=== PATIENT | female | born 1980 | race Caucasian/White ===

== ENCOUNTER 2020-01-27 08:54 | Outpatient (CLI) | payer OTHER, SELFPAY ==
--- NOTE | ~2020-01-27 | MM_ITS ---
EXAMINATION: MM screening sonia BI w dalia HISTORY: Screening mammogram, family history of breast cancer in her mother. TECHNIQUE: Craniocaudal and mediolateral oblique 3-D tomosynthesis images were obtained and synthetic 2-D images were generated. CAD analysis was submitted and interpreted. COMPARISON: 01/06/2019, 01/18/2018 BREAST PARENCHYMAL COMPOSITION: The breasts are heterogeneously dense, which may obscure small masses . FINDINGS: There is no evidence of suspicious mass, calcification, or architectural distortion to sugg est malignancy in either breast. There has been no suspicious interval change. IMPRESSION: 1. No mammographic evidence of malignancy. 2. Recommend routine screening mammography in one year. BI-RADS Category 1: Negative Reviewed, dictated and finalized at location A.
== END 2020-01-27 08:55 | disposition home or self-care (01) ==
LOC: ANHIMG 08:58
PROVIDERS: PCP Physician Assistant; Visit Provider Obstetrics & Gynecology
DX: Z12.31 Encounter for screening mammogram for malignant neoplasm of breast (principal)
CPT/HCPCS: 77063; 77067

== ENCOUNTER 2021-03-12 15:30 | Outpatient (CLI) | payer OTHER, SELFPAY ==
--- NOTE | ~2021-03-12 | MM_ITS ---
EXAMINATION: MM screening sonia BI w dalia HISTORY: Screening mammogram, family history of breast cancer in her mother. TECHNIQUE: Craniocaudal and mediolateral oblique 3-D tomosynthesis images were obtained and synthetic 2-D images were generated. CAD analysis was submitted and interpreted. COMPARISON: 01/27/2020, 01/06/2019, 12/30/2017 BREAST PARENCHYMAL COMPOSITION: The breasts are heterogeneously dense, which may obscure small masses . FINDINGS: There is no evidence of suspicious mass, calcification, or architectural distortion to sugg est malignancy in either breast. There has been no suspicious interval change. IMPRESSION: 1. No mammographic evidence of malignancy. 2. Recommend routine screening mammography in one year. BI-RADS Category 1: Negative Reviewed, dictated and finalized at location A.
== END 2021-03-12 15:31 | disposition home or self-care (01) ==
LOC: ANHIMG 15:33
PROVIDERS: PCP Physician Assistant; Visit Provider Physician Assistant
DX: Z12.31 Encounter for screening mammogram for malignant neoplasm of breast (principal)
CPT/HCPCS: 77063; 77067

== ENCOUNTER 2021-03-27 19:56 | Emergency (ER) | payer OTHER, SELFPAY ==
--- NOTE | ~2021-03-27 | XR_ITS ---
EXAMINATION: XR finger 2nd LT min 2V INDICATION: Left second finger pain, initial encounter TECHNIQUE: Four views of the left second finger are obtained. COMPARISON: None available FINDINGS: There is a soft tissue laceration at the palmar aspect of the tuft of the second finger. Th ere is no radiopaque foreign body. No underlying osseous abnormality is identified. Bone alignment is normal. There is no fracture. IMPRESSION: 1. Soft tissue laceration involving the tuft of the second finger without underlying osseous abnormal ity or radiopaque foreign body. Reviewed, dictated and finalized at location A. IMPRESSION: 1. Soft tissue laceration involving the tuft of the second finger without under lying osseous abnormality or radiopaque foreign body.
--- NOTE | 2021-03-27 20:02 | ED.WOUNDLAC ---
HPI - Wound/Laceration General Chief Complaint: Wound/Laceration Stated Complaint: Cut third finger Lt Hand Time Seen by Provider: 03/27/21 20:01 Source: patient and RN notes reviewed Limitations: no limitations History of Present Illness HPI narrative: The right-handed patient, whose tetanus status is up-to-date, presents with left index finger laceration. About an hour prior to arrival, patient sustained a 1 cm, transverse, linear laceration of the distal left index finger on the mid-tuft from battery-powered ore trimmer. No weakness, numbness, foreign body sensation; symptoms of bleeding and pain are mild, better with compression or elevation Related Data Home Medications Medication Instructions Recorded Confirmed multivitamin 1 tablet PO DAILY 02/21/20 03/01/21 cetirizine 10 mg capsule 10 mg PO DAILY PRN 02/27/21 03/01/21 Allergies Allergy/AdvReac Type Severity Reaction Status Date / Time Quinolones Allergy Mild RASH ON Verified 02/27/21 09:31 ARMS amoxicillin Allergy Unknown Unknown Verified 02/27/21 09:31 ciprofloxacin Allergy Unknown Unknown Verified 02/27/21 09:31 Penicillins Allergy Unknown Unknown Verified 02/27/21 09:31 CIPROFLOXACIN HCL Allergy Mild RASH Uncoded 08/20/19 10:17 Review of Systems Review of Systems: Narrative: General/Constitutional: No weight loss,fever Eyes: N0: Redness,discharge Ears/Nose/Throat: No: Epistaxis,ear discharge Respiratory: Denies: Hemoptysis Gastrointestinal: No Vomiting, Bleeding-rectal Skin: No Lumps, eruption Neurologic: No Focal Weakness,Sz Hematologic: Denies: Petechiae/Purpura Psychiatric: No: Suicida ideationl All Other Systems: Reviewed and Negative [facility] Past Medical History Medical History (Updated 03/28/21 @ 00:01 by Mary Lou Mosley) Carpal tunnel syndrome Depression Vaginal delivery x 4 Surgical History Surgical History History of dilation and curettage History of hernia repair Family History Family History Grandparent Hypertension Cerebrovascular accident Carcinoma of colon Family history of malignant neoplasm of breast Diabetes mellitus Family history of cardiovascular disease Mother Hypertension Family history of diabetes mellitus in first degree relative Diabetes mellitus Father Carcinoma of colon Social History Social History Smoking status: Former smoker Second hand tobacco smoke exposure: No Smoking end date: 09/01/02 Alcohol intake: never Comments At time of signature, agree with nursing past medical, surgical, social and family history. There is no relevant family history pertinent to the presenting complaint Exam Narrative: Exam Narrative: General Appearance: Well appearing, , Conjunctiva clear Mouth/Throat: Normal appearing, Normal lips, Supple Respiratory: Airway patent, No respiratory distress MS-fingerl: Normal strength (mostly intact, limited flexion/extension by pain), Tenderness ( laterally, with mild decreased ROM), Swelling (laterally), Other (no anterior drawer, no collateral laxity, no Achilles tenderness, no fifth MT tenderness) Skin: Warm, Dry, Normal color Neurological: A&O x3, , Normal affect Course Vital Signs Vital signs: Vital Signs Temperature 99.6 F 03/27/21 20:05 Pulse Rate 78 03/27/21 20:05 Respiratory Rate 18 03/27/21 20:05 Blood Pressure 120/78 03/27/21 20:05 Pulse Oximetry 100 03/27/21 20:05 Temperature 99.6 F 03/27/21 20:05 Pulse Rate 78 03/27/21 20:05 Respiratory Rate 18 03/27/21 20:05 Blood Pressure 120/78 03/27/21 20:05 Pulse Oximetry 100 03/27/21 20:05 Procedures Laceration Laceration 1: Date: 03/27/21 Site: hand Side (If applicable): left Size (cm): 1 Description: linear Depth: simple, single layer
[2021-03-27 20:05] VITALS: BP 120/78; PULSE 78; RESP 18; TEMP 37.6; O2SAT 100
[2021-03-27] MEDS: LIDOCAINE, EPINEPHRINE, TETRACAINE VISCOUS SOLN 3 ML TOPICAL (20:18)
== END 2021-03-27 20:56 | disposition home or self-care (01) ==
PROVIDERS: Emergency Provider Emergency Medicine; PCP Physician Assistant
DX: S61.211A Laceration without foreign body of left index finger without damage to nail, initial encounter (principal); W29.3XXA Contact with powered garden and outdoor hand tools and machinery, initial encounter; Z87.891 Personal history of nicotine dependence
CPT/HCPCS: 12001; 73140; 99213; G0463

== ENCOUNTER 2021-05-10 13:15 | Outpatient (CLI) | payer OTHER, SELFPAY | END 2021-05-10 13:16 | disposition home or self-care (01) | PROVIDERS: PCP Physician Assistant; Visit Provider Surgery | DX: K43.2 Incisional hernia without obstruction or gangrene (principal) | CPT/HCPCS: 36415; 86850; 86900; 86901 ==

== ENCOUNTER 2021-05-15 00:10 | Day surgery (SDC) | payer OTHER, SELFPAY ==
[2021-05-08 13:40] VITALS: BMI 28.3
--- NOTE | 2021-05-14 10:30 | WPDANESEPPF ---
Anes - Initial Pre Proc Eval Procedure: Operation Date: 05/15/21 11:30 Proposed Procedures p Laparoscopic Recurrent Ventral Hernia Repair with Mesh, Davinci Assisted - Mickey Wills DO Date/Time: 05/14/21 10:30 Surgeon: Mickey Wills DO Pre Op Diagnosis: Recurrent Ventral Hernia Patient Data Age: 41 Gender: F Height: 1.63 m Weight: 75 kg Allergies Allergy/AdvReac Type Severity Reaction Status Date / Time amoxicillin Allergy Mild Rash Verified 05/15/21 09:52 ciprofloxacin Allergy Mild Rash Verified 05/15/21 09:52 Penicillins Allergy Mild Rash Verified 05/15/21 09:52 Home Medications Medication Instructions Recorded Confirmed Type multivitamin 1 tablet PO DAILY 02/21/20 05/15/21 History cetirizine 10 mg capsule 10 mg PO DAILY PRN 02/27/21 05/08/21 History escitalopram oxalate 20 mg PO QAM 05/08/21 05/15/21 History pseudoephedrine HCl [Sudafed] 60 mg PO Q4-6H PRN 05/08/21 05/08/21 History Patient hx anesthesia problems: post op nausea/vomiting Family hx anesthesia problems: none PMFSH Past Medical History Medical History (Updated 03/28/21 @ 00:01 by Mary Lou Mosley) Carpal tunnel syndrome Depression Vaginal delivery x 4 Surgical History Surgical History History of dilation and curettage History of hernia repair Family History Family History Grandparent Hypertension Cerebrovascular accident Carcinoma of colon Family history of malignant neoplasm of breast Diabetes mellitus Family history of cardiovascular disease Mother Hypertension Family history of diabetes mellitus in first degree relative Diabetes mellitus Father Carcinoma of colon Social History Social History Smoking packs per day: 1 Smoking cigarettes per day: 20.0 Years smoked: 5 Smoking pack-years: 5.00 Smoking status: Former smoker Second hand tobacco smoke exposure: No Smoking end date: 05/08/20 Alcohol intake: current Living arrangements: with family Spiritual care concerns: No Anes - Eval Final PreProcedure Day of Procedure 05/14/21 10:30 Patient weight: overweight Heart: regular rate and rhythm Lungs: clear to auscultation and normal air movement Airway: Mallampati scale class II Neurological: alert and oriented Last oral intake: >/= 8 hours ASA classification: II Emergent: no Anesthetic plan: proceed Anesthesia type and monitoring: general ETT and standard monitoring Informed Consent: The patient's anesthetic plan and its attendant risks and benefits were discussed with the patient/family/POA. Questions were solicited and answers provided to the satisfaction of the patient/family/POA.
[2021-05-15] VITALS (10 sets, daily range): BP systolic 92–111; BP diastolic 53–66; PULSE 57–82; RESP 12–18; TEMP 36.7–37.2; O2SAT 98–100; BMI 28.5
[2021-05-15] MEDS: LACTATED RINGERS 1,000 ML 30 ML IV CONT ×2 (10:36→13:05)
[2021-05-15] MEDS: FAMOTIDINE 20 MG/2 ML VIAL IV PUSH (10:38)
[2021-05-15] MEDS: SCOPOLAMINE 1.5 MG PATCH TRANSDERM (10:38)
[2021-05-15] MEDS: KETOROLAC 15 MG/ML VIAL (*BKC) IV PUSH (10:39)
[2021-05-15] MEDS: ACETAMINOPHEN 500 MG TABLET 1000 MG PO (10:39)
--- NOTE | 2021-05-15 10:41 | PM.IMHP ---
H&P: HPI History of Present Illness Date/Time: 05/15/21 10:41 Chief Complaint: recurrent ventral hernia Narrative: 41 yo woman presents for recurrent ventral hernia repair. She had a hernia repaired in 2008 with mesh. She was doing well for a period of time, but now has a recurrent hernia. She reports no changes since last seen in office. Review of Systems Review of Systems: All systems reviewed & are unremarkable except as noted in HPI and below Constitutional: Constitutional: Denies chills, Denies fever(s), Denies headache(s) and Denies weight loss Eyes: Eyes: Denies change in vision ENT: Denies dizziness, Denies headache(s), Denies neck mass and Denies throat swelling Cardiovascular: Cardiovascular: Denies chest pain, Denies lightheadedness and Denies dyspnea Respiratory: Respiratory: Denies cough, Denies dyspnea and Denies wheezing Gastrointestinal: Gastrointestinal: Denies abdominal pain, Denies change in bowel habits, Denies nausea and Denies vomiting Genitourinary: Genitourinary: Denies hematuria and Denies dysuria Musculoskeletal: Musculoskeletal: Reports as per HPI Integumentary/Breasts: Skin/Breast: Reports as per HPI Neurologic: Denies dizziness and Denies headache(s) Allergic/Immunologic: Allergic/Immunologic: Denies throat swelling and Denies wheezing [facility] Past Medical History Medical History (Updated 03/28/21 @ 00:01 by Mary Lou Mosley) Carpal tunnel syndrome Depression Vaginal delivery x 4 Surgical History Surgical History History of dilation and curettage History of hernia repair Family History Family History Grandparent Hypertension Cerebrovascular accident Carcinoma of colon Family history of malignant neoplasm of breast Diabetes mellitus Family history of cardiovascular disease Mother Hypertension Family history of diabetes mellitus in first degree relative Diabetes mellitus Father Carcinoma of colon Social History Social History Smoking packs per day: 1 Smoking cigarettes per day: 20.0 Years smoked: 5 Smoking pack-years: 5.00 Smoking status: Former smoker Second hand tobacco smoke exposure: No Smoking end date: 05/08/20 Alcohol intake: current Living arrangements: with family Spiritual care concerns: No Meds Home Medications and Allergies Home Medications Medication Instructions Recorded Confirmed Type multivitamin 1 tablet PO DAILY 02/21/20 05/15/21 History cetirizine 10 mg capsule 10 mg PO DAILY PRN 02/27/21 05/08/21 History escitalopram oxalate 20 mg PO QAM 05/08/21 05/15/21 History pseudoephedrine HCl [Sudafed] 60 mg PO Q4-6H PRN 05/08/21 05/08/21 History Allergies Allergy/AdvReac Type Severity Reaction Status Date / Time amoxicillin Allergy Mild Rash Verified 05/15/21 09:52 ciprofloxacin Allergy Mild Rash Verified 05/15/21 09:52 Penicillins Allergy Mild Rash Verified 05/15/21 09:52 Exam Const: General: no acute distress and alert Orientation/consciousness: patient oriented x3 HENMT: Head: normocephalic and atraumatic Ears: hearing grossly normal bilaterally General nose exam: Normal nares present Mouth: Yes Normal oral and palatal mucosa present Eyes: Periorbital: periorbital findings normal Sclera: sclerae normal EOM: EOMs intact bilaterally Neck: Neck: normal visual inspection, no lymphadenopathy and trachea midline Chest: Chest palpation & inspection: normal inspection of the chest Resp: Effort & Inspection: normal respiratory effort Auscultation: clear to auscultation bilaterally Cardio: Jugular venous distension: no JVD Rate: regular rate Rhythm: regular rhythm Heart sounds: S1 normal heart sound present and S2 normal heart sound present Peripheral pulses: Peripheral pulses 2+ throughout GI: Inspection: normal to inspection GI
--- NOTE | 2021-05-15 10:43 | WPDHPUPDATE1 ---
History and Physical Update Update Date/Time: 05/15/21 10:43 History and Physical has been reviewed, including an updated exam of the patient. There are NO changes in the patient's condition. Risks, benefits, and alternatives have been discussed and questions answered. Patient agrees to proceed with procedure.
[2021-05-15] MEDS: ceFAZolin 2 GM/D5W 50 ML 2 GM/50 ML BAG IVPB (11:03)
--- NOTE | 2021-05-15 13:16 | W.PM.PROC2 ---
Procedure Note - Detailed Date of Procedure 05/15/21 Pre-op Diagnosis Recurrent Ventral Hernia Post-op Diagnosis same Procedure Performed Laparoscopic Recurrent Ventral Hernia Repair with Mesh, da Rebeca assisted Surgeon Mickey Wills DO Anesthesia general and local (Exparel) Indications This is a 41-year-old woman who presents with a bulge just above her umbilicus. She reports a previous history ventral hernia repair with mesh in 2008. She was doing well after the surgery up until about 1 year ago. She began noticing another bulge develop but was not having any significant pain associated with this. She was found to have a recurrent ventral hernia on exam. Discussions were made with the patient about treatment options and decision was made to proceed with laparoscopic recurrent ventral hernia repair with mesh, de Rebeca assisted. Findings Laparoscopic recurrent ventral hernia repair was performed. Upon inspecting the abdomen laparoscopically, there were only 2 small adhesive bands up to the old mesh. The mesh appeared to be in proper position centered at the level of the umbilicus. Just above the mesh, where the falciform ligament entered the abdominal wall, there was a small 1 cm hernia containing preperitoneal fat. The mesh was excised and the preperitoneal fat was reduced from the hernia defect. The falciform ligament was then also taken down about 8 cm cephalad to allow for mesh placement. A robotic intraperitoneal onlay mesh (rIPOM) technique was then utilized for repair. The hernia defect was closed using 0 Stratafix running absorbable suture. A 15 cm x 10 cm Symbotex mesh was then placed and secured to the abdominal wall using 2 0 V lock running absorbable sutures. Description of Procedure Procedure as well as risks, benefits, and alternatives were discussed with the patient. Written consent was obtained and placed in chart prior to procedure. Patient was brought back to surgical suite. She was placed supine on operating table. Time-out was done to confirm patient and procedure. she was then intubated by the anesthesia department. A bump was placed under her left hip, and the bed was flexed slightly to extend the space between her costal margin and iliac crest. her abdomen was prepped and draped in sterile fashion using chlorhexidine prep. A 5 millimeter incision was made in the left upper quadrant, and a 5 millimeter Optiview trocar was advanced through the abdominal layers under direct visualization. Once inside the abdominal cavity, carbon dioxide insufflation was used to create a pneumoperitoneum. her abdomen was inspected. An 8 millimeter incision was made in the left lower quadrant, and an 8 millimeter robotic trocar was placed under direct visualization. Another 8 millimeter incision was made in the left lateral abdomen, and an 8 millimeter robotic trocar was placed under direct visualization. Exparel was infiltrated along the lateral abdominal zacarias to perform a transversus abdominis plane block bilaterally. The 5 millimeter port was removed, the incision was extended to 12 millimeters, and a 12 millimeter air seal port was placed under direct visualization. A Aniceto-Lantigua cone was also used to place an 0-Vicryl simple interrupted suture at this trocar site. The robotic arms were brought up to the patient's bedside and secured to the ports. The camera and instruments were inserted, and I then moved over to the robotic console and took control of the camera and instruments. After careful thorough inspection of the abdominal cavity, I began my dissection at the hernia. the hernia appeared just superior to the old mesh. The mesh was carefully excised using scissors with electrocautery. The mesh was removed and sent for pathology. The falciform ligament was then taken down using scissors with electrocautery and this was taken down far enough cephalad to allow for mesh placement. The preperitoneal fat was then also
[2021-05-15] MEDS: oxyCODONE HCL (*CRX) 5 MG TAB IR PO (14:13)
== END 2021-05-15 15:00 | disposition home or self-care (01) ==
PROVIDERS: PCP Physician Assistant; Visit Provider Surgery
PROC: (CPT 49656; principal; 2021-05-15 11:30)
DX: K43.2 Incisional hernia without obstruction or gangrene (principal); F32.9 Major depressive disorder, single episode, unspecified; Z87.891 Personal history of nicotine dependence
CPT/HCPCS: 49656; S2900; 88300; A9270; C1781; C9290; J0690; J1100; J1170; J1885; J2250; J2405; J2704; J2710; J3010; J7030; J7120

== ENCOUNTER 2023-08-07 03:30 | Emergency (ER) | payer OTHER, SELFPAY ==
[2023-08-07] VITALS (10 sets, daily range): BP systolic 103–121; BP diastolic 68–79; PULSE 80–101; RESP 12–24; TEMP 36.7; O2SAT 96–100
--- NOTE | ~2023-08-07 | CT_ITS ---
CT of the Abdomen and Pelvis: Indication: Abdominal pain, transaminitis Technique: 2.5 mm axial scans were obtained through the abdomen and pelvis following intravenous adm inistration of 100 cc of Omnipaque 350. Dose reduction technique was used on this scan by utilizing a utomated exposure control and iterative reconstruction technique. The dose-length product (DLP) was 3 67.03 mGy-cm. Findings: Scans through the lung bases are unremarkable. The liver, spleen, pancreas, gallbladder, adrenals and kidneys are within normal limits. No evidence of aortic aneurysm. No lymphadenopathy. No bowel obstruction or bowel wall thickening. There is no evidence to suggest acute appendicitis. Images through the pelvis were performed. Urinary bladder unremarkable. No adnexal mass seen. No asci jennifer. Impression: No significant abnormalities seen. Reviewed, dictated and finalized at [facility]. [employer] Impression: No significant abnormalities seen.
[2023-08-07 04:12] LABS: Appearance Urine Cloudy (Clear); Bacteria Urine None Seen /hpf; Bilirubin Urine Negative (Negative); Blood Urine 1+ (Negative); Color Urine Yellow (Yellow); Glucose Urine UA Negative (Negative); Ketones Urine Trace mg/dL (Negative); Leukocyte Esterase Ur Trace LEU/UL (Negative); Nitrate Urine Negative (Negative); Non Pathogenic Casts 0-2; Protein Urine 1+ mg/dL (Negative); Specific Grav Ur 1.012 (1.001-1.035); Squamous Epithelial Cell Urine Moderate /hpf (Few); Urobilinogen Urine 0.2 mg/dL (<2.0); WBC Urine 21-50 /hpf
[2023-08-07 04:22] LABS: Add Urine Microscopic? YES
--- NOTE | 2023-08-07 05:11 | ED.FEMALEGU ---
HPI - Female Genitourinary General Chief complaint: Urogenital-Female Stated complaint: UTI Time Seen by Provider: 08/07/23 04:27 History of Present Illness HPI Narrative: Patient is a 43-year-old female presenting with abdominal pain. Patient states that she has been taking antibiotics for the last 3 days for a UTI. States that She was initially feeling somewhat improved with the antibiotics but then the abdominal pain returned. States that it is in her lower abdomen and it does radiate into her flanks. Reports some nausea and decreased appetite but no vomiting. No diarrhea or constipation. States that she was having fever several days ago but these have resolved. Also complains of body aches. No chest pain, shortness of breath, cough. No further complaints. Related Data Home Medications Medication Instructions Recorded Confirmed multivitamin (Daily Multi-Vitamin 1 tablet PO DAILY 02/21/20 03/19/23 tablet) cetirizine 10 mg capsule (Zyrtec) 10 mg PO DAILY PRN Allergy Symptoms 02/27/21 03/19/23 pseudoephedrine HCl 60 mg tablet 60 mg PO Q4-6H PRN Allergy Symptoms 05/08/21 03/19/23 Allergies Allergy/AdvReac Type Severity Reaction Status Date / Time amoxicillin Allergy Mild Rash Verified 08/07/23 03:36 ciprofloxacin Allergy Mild Rash Verified 09/04/22 09:06 Penicillins Allergy Mild Rash Verified 08/07/23 03:36 Review of Systems Review of Systems: All systems reviewed & are unremarkable except as noted in HPI and below PMFSH Past Medical History Medical History Anxiety Bilateral hip pain BMI 26.0-26.9,adult BMI 29.0-29.9,adult Breast cancer screening Carpal tunnel syndrome Depression Dysuria Encounter to establish care Family hx colonic polyps Migraine PMDD (premenstrual dysphoric disorder) Seasonal allergies Vaginal delivery x 4 Surgical History Surgical History History of dilation and curettage History of hernia repair Laparoscopic Recurrent Ventral Hernia Repair with Mesh, da Rebeca assisted Family History Family History Grandparent Hypertension Cerebrovascular accident Diabetes mellitus Breast cancer Mother Hypertension Diabetes mellitus Breast cancer Father Carcinoma of colon Skin cancer Sibling Thyroid disease Grandparent Breast cancer Carcinoma of colon Social History Social History Smoking packs per day: 1 Smoking cigarettes per day: 20.0 Years smoked: 5 Smoking pack-years: 5.00 Smoking status: Former smoker Tobacco type: cigarettes Second hand tobacco smoke exposure: No Smoking end date: 09/01/99 Alcohol intake: current Substance use: never Substance use type: does not use Lack of Transportation: No Lack of Food: Never True Current Housing: I Have Housing Concerned About Future Housing: No Difficulty Paying Gas/Electric Bills: No Difficulty Paying for Meds: No Currently Unemployed: No Education: Trade/Vocational Certificate Difficulty w/ Childcare or Family Care: No Living arrangements: with family Spiritual care concerns: No Exam Narrative: GENERAL: Nontoxic, in no acute distress, pleasant and cooperative HEAD: Normocephalic, atraumatic. EYES: PERRLA and EOMI. ENT: mucous membranes moist. NECK: Supple. CHEST: No respiratory distress. HEART: Regular rate and rhythm ABDOMEN: Soft, mild tenderness lower quadrants, +bilateral CVA tenderness EXTREMITIES: Normal range of motion SKIN: Warm, dry, no rash. NEURO: Alert and oriented x3. PSYCH: Normal mood and affect. Course Vital Signs Vital signs: Vital Signs Temperature 98.0 F 08/07/23 03:32 Pulse Rate 101 H 08/07/23 03:32 Respiratory Rate 14 08/07/23 03:32 Blood Pressure 119/75 08/07/23 03:32 Pulse Oxime
[2023-08-07] MEDS: SODIUM CHLORIDE 0.9% IV 1,000 ML 999 ML IV CONT (05:14)
[2023-08-07] MEDS: cefTRIAXone 2 GM/NS 100 ML 2 GM/100 ML BAG IVPB (05:14)
[2023-08-07 05:22] LABS: Basophils Absolute Auto 0.1 K/mm3 (0.0-0.1); Basophils Percent Auto 0.4 % (0.2-1.2); Eosinophils Absolute Auto 0.2 K/mm3 (0-0.3); Hematocrit 38.4 % (37.0-47.0); Hemoglobin 12.5 g/dL (12.0-15.0); Immature Granulocyte Absolute 0.09 K/mm3 (0.00-0.031); Immature Granulocyte Percent A 0.5 % (0-0.5); Lymphocytes Absolute Auto 1.58 K/mm3 (0.9-3.2); Lymphocytes Percent Auto 9.6 % (18.3-44.2); Mean Corpuscular HGB Conc 32.6 g/dl (32-36); Mean Corpuscular Hemoglobin 32.6 pg (26-34); Mean Platelet Volume 10.8 fl (7.4-10.4); Monocytes Absolute Auto 1.6 K/mm3 (0.1-0.6); Monocytes Percent Auto 9.7 % (2.6-8.5); Neutrophils Percent Auto 78.8 % (45.5-73.1); Platelet Count Result 361 k/mm3 (150-375); Red Blood Count 3.84 M/mm3 (4.2-5.4); Red Cell Distribution Width 12.1 % (11.5-14.5); White Blood Count 16.5 K/mm3 (4.5-10.0)
[2023-08-07 05:27] LABS: Alanine Aminotransferase 132 U/L (6-35); Albumin Level 4.1 g/dL (3.5-5.1); Alkaline Phosphatase 197 U/L (38-126); Anion Gap 7 mmol/L (8-16); Aspartate Amino Transferase 99 U/L (14-36); Bilirubin,Total 0.7 mg/dL (0.2-1.3); Blood Urea Nitrogen 7 mg/dL (7-17); Calcium 9.5 mg/dL (8.4-10.2); Carbon Dioxide 29 mmol/L (22-30); Chloride 98 mmol/L (98-107); Estimated CRCL calculation 79 ml/min; Estimated Glomerular Filt Rate > 60; Glucose 120 mg/dL (65-110); Lipase 43 U/L (23-300); Potassium 3.8 mmol/L (3.4-5.0); Sodium 134 mmol/L (137-145)
[2023-08-07 05:28] LABS: Lactic Acid Reflex 0.7 mmol/L (0.7-2.0)
[2023-08-07 05:55] LABS: Influenza A QL RT-PCR Negative (Negative); Influenza B QL RT-PCR Negative (Negative); SARS-CoV-2 RNA PCR Negative (Negative)
--- NOTE | 2023-08-07 07:09 | PC.NURSE ---
Report given to JOSH Fallon at this time.
== END 2023-08-07 07:36 | disposition home or self-care (01) ==
PROVIDERS: Emergency Provider Emergency Medicine; PCP Nurse Practitioner Family
DX: N39.0 Urinary tract infection, site not specified (principal); Z20.822 Contact with and (suspected) exposure to COVID-19; F41.9 Anxiety disorder, unspecified; F32.A Depression, unspecified; Z87.891 Personal history of nicotine dependence
CPT/HCPCS: 36415; 74177; 80053; 81001; 83605; 83690; 85025; 87086; 87636; 96365; 99284; J0696; J7030; Q9967

== ENCOUNTER 2023-08-14 12:27 | Outpatient (CLI) | payer OTHER, SELFPAY ==
--- NOTE | ~2023-08-14 | MM_ITS ---
EXAMINATION: MM screening sonia BI w dalia HISTORY: Screening TECHNIQUE: Craniocaudal and mediolateral oblique 3-D tomosynthesis images were obtained and synthetic 2-D images were generated. CAD analysis was submitted and interpreted. COMPARISON: Comparison to multiple prior studies sequentially, with oldest reviewed study dated 09/2017. BREAST PARENCHYMAL COMPOSITION: The breasts are heterogeneously dense, which may obscure small masses FINDINGS: There is no evidence of suspicious mass, calcification, or architectural distortion to sugg est malignancy in either breast. There has been no suspicious interval change. IMPRESSION: 1. No mammographic evidence of malignancy. 2. Recommend routine screening mammography in one year. BI-RADS Category 1: Negative Reviewed, dictated and finalized at location A. [place]
== END 2023-08-14 12:28 | disposition home or self-care (01) ==
PROVIDERS: PCP Nurse Practitioner Family; Visit Provider Nurse Practitioner Family
DX: Z12.31 Encounter for screening mammogram for malignant neoplasm of breast (principal)
CPT/HCPCS: 77063; 77067

== ENCOUNTER 2023-12-12 02:44 | Day surgery (SDC) | payer OTHER, SELFPAY ==
[2023-12-02 12:40] VITALS: BMI 25.7
[2023-12-12 08:29] VITALS: BP 113/66; PULSE 84; RESP 18; TEMP 35.6; O2SAT 99
[2023-12-12] MEDS: LACTATED RINGERS 1,000 ML 150 ML IV CONT (08:33)
--- NOTE | 2023-12-12 08:44 | WPDANESEPPF ---
Anes - Initial Pre Proc Eval Procedure: Operation Date: 12/12/23 09:30 Proposed Procedures p Colonoscopy - Krishan Diamond MD Date/Time: 12/12/23 08:44 Surgeon: Krishan Diamond MD Pre Op Diagnosis: family hx colon polyps, family hx colon ca Patient Data Age: 43 Gender: F Height: 1.63 m Weight: 68 kg Last Vital Signs Temp 35.6 C L 12/12/23 08:29 Pulse 84 12/12/23 08:29 Resp 18 12/12/23 08:29 BP 113/66 12/12/23 08:29 Pulse Ox 99 12/12/23 08:29 O2 Del Method Room Air 12/12/23 08:29 Allergies Allergy/AdvReac Type Severity Reaction Status Date / Time amoxicillin Allergy Mild Rash Verified 12/12/23 08:43 ciprofloxacin Allergy Mild Rash Verified 12/12/23 08:43 Penicillins Allergy Mild Rash Verified 12/12/23 08:43 Home Medications Medication Instructions Recorded Confirmed Type multivitamin (Daily Multi-Vitamin 1 tablet PO DAILY 02/21/20 12/02/23 History tablet) cetirizine 10 mg capsule (Zyrtec) 10 mg PO DAILY PRN Allergy Symptoms 02/27/21 12/02/23 History pseudoephedrine HCl 60 mg tablet 60 mg PO Q4-6H PRN Allergy Symptoms 05/08/21 12/02/23 History fluticasone propionate 50 1 spray intranasal BID #16 grams 03/18/22 12/02/23 Rx mcg/actuation nasal spray,suspension (Children's Flonase Allergy Relief) venlafaxine 37.5 mg 37.5 mg PO DAILY #30 caps 05/26/23 12/02/23 Rx capsule,extended release 24 hr (Effexor XR) bupropion HCl 300 mg 24 hr tablet, 300 mg PO QAM #30 tabs 10/03/23 12/02/23 Rx extended release (Wellbutrin XL) Patient hx anesthesia problems: none Family hx anesthesia problems: none Results Review: All pre-operative results and documents have been reviewed as part of the pre-operative evaluation. COUNTS INCLUDE 234 BEDS AT THE [facility] Past Medical History Medical History Anxiety Bilateral hip pain BMI 25.0-25.9,adult BMI 26.0-26.9,adult BMI 29.0-29.9,adult Breast cancer screening Carpal tunnel syndrome Depression Dysuria Elevated liver enzymes Encounter to establish care Family hx colonic polyps Hyperlipidemia Migraine PMDD (premenstrual dysphoric disorder) Seasonal allergies Vaginal delivery x 4 Surgical History Surgical History History of dilation and curettage History of hernia repair Laparoscopic Recurrent Ventral Hernia Repair with Mesh, da Rebeca assisted Family History Family History Grandparent Hypertension Cerebrovascular accident Diabetes mellitus Breast cancer Mother Hypertension Diabetes mellitus Breast cancer Father Carcinoma of colon Skin cancer Sibling Thyroid disease Grandparent Breast cancer Carcinoma of colon Social History Social History (Updated 12/12/23 @ 08:44 by Davon Rai MD) Smoking packs per day: 1 Smoking cigarettes per day: 20.0 Years smoked: 5 Smoking pack-years: 5.00 Smoking status: Former smoker Tobacco type: cigarettes Second hand tobacco smoke exposure: No Smoking end date: 09/01/99 Alcohol intake: current Drinks per week: 4 Alcohol use details: BEER, ON WEEKENDS Substance use: never Substance use type: does not use Lack of Transportation: No Lack of Food: Never True Current Housing: I Have Housing Concerned About Future Housing: No Difficulty Paying Gas/Electric Bills: No Difficulty Paying for Meds: No Currently Unemployed: No Education: Trade/Vocational Certificate Difficulty w/ Childcare or Family Care: No Living arrangements: with family Spiritual care concerns: No Anes - Eval Final PreProcedure Day of Procedure 12/12/23 08:44 Patient weight: overweight Heart: regular rate and rhythm Lungs: clear to auscultation Airway: Mallampati scale class II Neurological: alert and oriented Last oral intake: >/= 8 hours ASA classification: II Emergent: no
[2023-12-12 08:45] VITALS: BMI 25.0
--- NOTE | 2023-12-12 09:25 | PM.HPGS ---
History of Present Illness History of Present Illness Consent: Risks, benefits, and alternatives have been discussed and questions answered. Patient agrees to proceed with procedure. Chief complaint: family hx colon polyps, family hx colon ca Narrative: Pao Villegas is a 43 year old female here for first screening colonoscopy, uncle at late 40's had colon cancer Review of Systems Review of Systems: All systems reviewed & are unremarkable except as noted in HPI and below PMFSH Past Medical History Medical History Anxiety Bilateral hip pain BMI 25.0-25.9,adult BMI 26.0-26.9,adult BMI 29.0-29.9,adult Breast cancer screening Carpal tunnel syndrome Depression Dysuria Elevated liver enzymes Encounter to establish care Family hx colonic polyps Hyperlipidemia Migraine PMDD (premenstrual dysphoric disorder) Seasonal allergies Vaginal delivery x 4 Surgical History Surgical History History of dilation and curettage History of hernia repair Laparoscopic Recurrent Ventral Hernia Repair with Mesh, da Rebeca assisted Family History Family History Grandparent Hypertension Cerebrovascular accident Diabetes mellitus Breast cancer Mother Hypertension Diabetes mellitus Breast cancer Father Carcinoma of colon Skin cancer Sibling Thyroid disease Grandparent Breast cancer Carcinoma of colon Social History Social History (Updated 12/12/23 @ 08:44 by Davon Rai MD) Smoking packs per day: 1 Smoking cigarettes per day: 20.0 Years smoked: 5 Smoking pack-years: 5.00 Smoking status: Former smoker Tobacco type: cigarettes Second hand tobacco smoke exposure: No Smoking end date: 09/01/99 Alcohol intake: current Drinks per week: 4 Alcohol use details: BEER, ON WEEKENDS Substance use: never Substance use type: does not use Lack of Transportation: No Lack of Food: Never True Current Housing: I Have Housing Concerned About Future Housing: No Difficulty Paying Gas/Electric Bills: No Difficulty Paying for Meds: No Currently Unemployed: No Education: Trade/Vocational Certificate Difficulty w/ Childcare or Family Care: No Living arrangements: with family Spiritual care concerns: No Meds Home Medications and Allergies Home Medications Medication Instructions Recorded Confirmed Type multivitamin (Daily Multi-Vitamin 1 tablet PO DAILY 02/21/20 12/02/23 History tablet) cetirizine 10 mg capsule (Zyrtec) 10 mg PO DAILY PRN Allergy Symptoms 02/27/21 12/02/23 History pseudoephedrine HCl 60 mg tablet 60 mg PO Q4-6H PRN Allergy Symptoms 05/08/21 12/02/23 History fluticasone propionate 50 1 spray intranasal BID #16 grams 03/18/22 12/02/23 Rx mcg/actuation nasal spray,suspension (Children's Flonase Allergy Relief) venlafaxine 37.5 mg 37.5 mg PO DAILY #30 caps 05/26/23 12/02/23 Rx capsule,extended release 24 hr (Effexor XR) bupropion HCl 300 mg 24 hr tablet, 300 mg PO QAM #30 tabs 10/03/23 12/02/23 Rx extended release (Wellbutrin XL) Allergies Allergy/AdvReac Type Severity Reaction Status Date / Time amoxicillin Allergy Mild Rash Verified 12/12/23 08:43 ciprofloxacin Allergy Mild Rash Verified 12/12/23 08:43 Penicillins Allergy Mild Rash Verified 12/12/23 08:43 Vital Signs Vital Signs - 24 hr 12/12/23 08:29 Temperature 96.1 F L Pulse Rate 84 Respiratory Rate 18 Blood Pressure 113/66 Pulse Oximetry 99 Oxygen Delivery Room Air Exam Const: General: comfortable and no acute distress HENMT: Face/Nose/Sinus: Normal nares present Eyes: General: appearance normal, both eyes and all related structures Neck: Neck: no JVD Resp: Auscultation: clear to auscultation bilaterally Cardio: Rate: regular rate Rhythm: regular rhythm GI: Inspection: non-dis
[2023-12-12 09:45] VITALS: BP 85/44; PULSE 85; RESP 19; O2SAT 100
[2023-12-12 09:55] VITALS: BP 98/55; PULSE 71; RESP 18; O2SAT 99
[2023-12-12 10:05] VITALS: BP 109/71; PULSE 88; RESP 24; O2SAT 100
== END 2023-12-12 10:10 | disposition home or self-care (01) ==
PROVIDERS: PCP Nurse Practitioner Family; Visit Provider Internal Medicine Gastroenterology
PROC: 0DJD8ZZ Inspection of Lower Intestinal Tract, Via Natural or Artificial Opening Endoscopic (ICD-10-PCS; CPT 45378; principal; 2023-12-12 09:30)
DX: Z12.11 Encounter for screening for malignant neoplasm of colon (principal); Z80.0 Family history of malignant neoplasm of digestive organs; F41.9 Anxiety disorder, unspecified; F32.A Depression, unspecified; E78.5 Hyperlipidemia, unspecified; Z87.891 Personal history of nicotine dependence
CPT/HCPCS: 45378; J2704; J7120

== ENCOUNTER 2024-10-07 08:36 | Outpatient (CLI) | payer OTHER, SELFPAY ==
--- NOTE | ~2024-10-07 | MM_ITS ---
EXAMINATION: MM screening sonia BI w dalia HISTORY: Screening TECHNIQUE: Craniocaudal and mediolateral oblique 3-D tomosynthesis images were obtained and synthetic 2-D images were generated. CAD analysis was submitted and interpreted. COMPARISON: Comparison to multiple prior studies sequentially, with oldest reviewed study dated 09/2017. BREAST PARENCHYMAL COMPOSITION: Dense: The breasts are extremely dense, which lowers the sensitivity of mammography. FINDINGS: There is no evidence of suspicious mass, calcification, or architectural distortion to sugg est malignancy in either breast. There has been no suspicious interval change. IMPRESSION: 1. No mammographic evidence of malignancy. 2. Recommend routine screening mammography in one year. BI-RADS Category 1: Negative Reviewed, dictated and finalized at location B. RDS AND INFORMATION MANAGER
--- OUTSIDE RECORDS SUMMARY | 2024-10-07 08:45 | XMS_ITS | Referral Summary ---
Author Organization [facility] [place] [address] [facility] Address [address] [place] [address] Care Team Providers Care Zipper Setter Chainstitch Name Role Phone Emili Phelps Primary Care Provider [phone] Allergies Active Allergy Reactions Criticality Noted Date Comments Ciprofloxacin Rash Medium 12/24/2012 Nickel Rash Medium 07/13/2015 Rash Penicillins Rash Medium 12/24/2012 Medications multivitamin-min -iron-FA-vit K (Multi For Her) 18 mg iron-600 mcg-40 mcg capsule Active escitalopram (LEXAPRO) 20 mg tabletIndication s:Moderate episode of recurrent major depressive disorder (HCC) TAKE 1 TABLET(20 MG) BY MOUTH DAILY 90 tablet 03/26/2022 Active Active Problems Problem Noted Date Diagnosed Date Moderate episode of recurrent major depressive d isorder 02/18/2021 Assessment & Plan (02/18/2021 11:57 PM CDT): Increase the lexapro to 20mg. monitor Breast cancer screening by mammogram 02/18/2021 Assessment & Plan (02/18/2021 11:58 PM CDT): Mammogram order provided BMI 28.0-28.9,adult 02/07/2021 Assessment & Plan (02/07/2021 1:43 PM CDT): Weight/BMI is in healthy range. Continue healthy lifestyle to maintain. Annual physical exam 09/30/2019 Assessment & Plan (02/18/2021 11:57 PM CDT): Encouraged healthy lifestyle, good nutrition and exercise. Encouraged Calcium and Vitamin D and weight bearing exercise for bone health. Reviewed immunizations Reviewed age appropirate screenings. Assessment & Plan (09/30/2019 8:52 PM VESSEL OPERATOR): Encouraged healthy lifestyle, good nutrition and exercise. Encouraged Calcium and Vitamin D and weight bearing exercise for bone health. Reviewed immunizations Reviewed age appropirate screenings. Umbilical hernia without obstruction and without gangrene 09/30/2019 Assessment & Plan (02/18/2021 11:57 PM CDT): Patient prefers to monitor. Reviewed s/s incarcerated hernia and she is to go to the ER if occurs. Assessment & Plan (09/30/2019 8:53 PM VESSEL OPERATOR): This is a significant, separately identifiable problem that was evaluated and managed on the same day as the wellness exam Will refer to Gen Surgeon for further evaluation. Reviewed s/s incarcerated bowel and to followup up immediately if these sxs appear. Other fatigue 09/30/2019 Assessment & Plan (09/30/2019 8:52 PM VESSEL OPERATOR): Probably multifactorial. Check labs and followup to re-evaluate Diabetes mellitus screening 09/30/2019 Assessment & Plan (09/30/2019 8:52 PM VESSEL OPERATOR): Check labs Lipid screening 09/30/2019 Assessment & Plan (09/30/2019 8:52 PM VESSEL OPERATOR): Check labs Resolved Problems Problem Noted Date Diagnosed Date Resolved Date BMI 28.0-28.9,adult 09/30/2019 02/08/20 21 Assessment & Plan (09/30/2019 8:52 PM VESSEL OPERATOR): Weight/BMI is in healthy range. Continue healthy lifestyle to maintain. Immunizations Name Administration Dates Next Due Influenza, Quadrivalent, Spl it, Preservative Free, Intramuscular 07/29/2018 Influenza, Unspecified 09/30/2019(Deferred: Rossy ent Refused) Pfizer SARS-CoV-2 Monovalent Vaccination (12+ Yrs) PURPLE 01/02/2021,11/27/2020 Tdap 09/01/2012 Social History Tobacco Use Types Packs/Day Years Used Date Smoking Tobacco: Never Smokeless Tobacco: Never Alcohol Use Standard Drinks/Week Comments Yes 0 (1 standard drink = 0.6 oz pur e alcohol) AUDIT-C Answer Date Recorded Q1: How often do you have a drink containing alc ohol? Monthly or less 02/07/2021 Q2: How many drinks containi ng alcohol do you have on a typical day when you are drinking? 1 or 2 02/07/2021 Q3: How often do you have si x or more drinks on one occasion? Never 02/07/2021 PHQ-2 Answer Date Recorded PHQ-2 Total Score (If total score is 3 or more points, staff should administer the PHQ-9) 1 02/07/2021 Personal Safety Answer Date Recorded Getting School Help Needed Not on file 11/13 Comments No Sex and Gender Information Value Date Recorded Sex Assigned at Not on file Legal Sex Female 4:00 AM VESSEL OPERATOR Gender Identity Not on file Sexual Orientation Not on file Last Filed Vital Signs Vital Sign Reading Time Taken Comments Blood Pressure 110/70 02/07/2021 1:41 PM CDT Pulse 68 02/07/2021 1:41 PM CDT Temperature 37.1 C (98.8 F) 02/07/2021 1:41 PM CDT Respiratory Rate - - Oxygen Saturation 99% 02/07/2021 1:41 PM CDT Inhaled Oxygen Concentration - - Weight 75.8 kg (167 lb 1.6 oz) 02/07/2021 1:41 P M CDT Height 162.6 cm (5' 4 ) 02/07/2021 1:41 PM CDT Body Mass Index 28.68 02/07/2021 1:41 PM CDT Plan of Treatment Not on file Procedures Procedure Name Priority Date/Time Associated Diagnosis Comments SCREENING MAMMOGRAM BILATERAL W NELSON Schedule Routine, Read Routine (OP Routine) 03/12/2021 Breast cancer screening by mammogram from Last 3 Months or Most Recently Relevant to Health Maintenance Results * Screening Mammogram Bilateral W Nelson (03/12/2021) Anatomical Region Laterality Modality Breast Bilateral Mammography Impressions 03/12/2021 BI-RADS Category 1: Negative Recommend routine screening in 1 year. Emili GALLARDO IMG MAMMO PROCEDURES Final Result from Last 3 Months or Most Recently Relevant to Health Maintenance Insurance PPO Care Teams Zipper Setter Chainstitch Relationship Specialty Start Date End Date Emili Phelps PA [address] [address] PCP - General Internal Medicine 08/09/19
--- OUTSIDE RECORDS SUMMARY | 2024-10-07 08:45 | XMS_ITS | Clinical Summary ---
Author Organization [facility] [address] [facility] [address] [place] [address] Phone Care Team Providers Care Financial Reporting Advisor Name Role Phone Liliya Hamlin MD Primary Care Provider [phone] Social History Tobacco Use Types Packs/Day Years Used Date Smoking Tobacco: Never Assessed Comments Unknown Sex and Gender Information Value Date Recorded Sex Assigned at Not on file Legal Sex Female 10:41 AM CDT Gender Identity Not on file Sexual Orientation Not on file Plan of Treatment Health Maintenance Due Date Last Done Comments DTAP/TDAP/TD VACCINES (1 - Tdap) 1997 HEPATITIS B VACCINES (1 of 3 - 19+ 3-dose series) 1997 CERVICAL CANCER SCREENING 2008 BREAST CANCER SCREENING 2018 COLORECTAL SCREENING 2023 Colorectal Cancer Screening 2023 FIT-DNA Q 3 years 2023 FIT/FOBT Q 1 year 2023 Flex Sig/CT Colonography Q 5 years 2023 INFLUENZA VACCINE (#1) 2024 HPV VACCINES Aged Out No longer eligi ble based on patient's age to complete this topic PNEUMOCOCCAL VACCINE 0-64 YEARS Aged Out No longer eligible based on patient's age to complete this topic Care Teams Financial Reporting Advisor Relationship Specialty Start Date End Date Liliya Hamlin MD [address] [place] [address] PCP - General Family Practice 12/28/12
--- OUTSIDE RECORDS SUMMARY | 2024-10-07 08:45 | XMS_ITS | Clinical Summary ---
Author Organization [facility] [place] [address] [facility] Address [address] [place] [address] Care Team Providers Care Splunk Dashboard Developer Name Role Phone Emili Phelps Primary Care Provider [phone] Allergies Active Allergy Reactions Criticality Noted Date [...] screenings. Assessment & Plan (09/30/2019 8:52 PM FURNACE ROOM SUPERVISOR): Encouraged healthy lifestyle, good nutrition and exercise. [...] occurs. Assessment & Plan (09/30/2019 8:53 PM FURNACE ROOM SUPERVISOR): This is a significant, separately identifiable problem that was evaluated and managed on the same day as the wellness exam Will refer to Gen Surgeon for further evaluation. Reviewed s/s incarcerated bowel and to followup up immediately if these sxs appear. Other fatigue 09/30/2019 Assessment & Plan (09/30/2019 8:52 PM FURNACE ROOM SUPERVISOR): Probably multifactorial. Check labs and followup to re-evaluate Diabetes mellitus screening 09/30/2019 Assessment & Plan (09/30/2019 8:52 PM FURNACE ROOM SUPERVISOR): Check labs Lipid screening 09/30/2019 Assessment & Plan (09/30/2019 8:52 PM FURNACE ROOM SUPERVISOR): Check labs Resolved Problems Problem Noted Date Diagnosed Date Resolved Date BMI 28.0-28.9,adult 09/30/2019 02/08/20 21 Assessment & Plan (09/30/2019 8:52 PM FURNACE ROOM SUPERVISOR): Weight/BMI is in healthy range. Continue healthy lifestyle to maintain. Immunizations Name Administration Dates Next Due Influenza, Quadrivalent, Spl it, Preservative Free, Intramuscular 07/29/2018 Influenza, Unspecified 09/30/2019(Deferred: Rossy ent Refused) Pfizer SARS-CoV-2 Monovalent Vaccination (12+ Yrs) PURPLE 01/02/2021,11/27/2020 Tdap 09/01/2012 Surgical History Surgery Date Site/Laterality Comments CARPAL TUNNEL RELEASE Bilateral HERNIA REPAIR Umbilical Family History Medical History Relation Name Comments Skin cancer Father Colon cancer Father's Brother Breast cancer Maternal Grandmother Breast cancer Mother Diabetes Other Hypertension Other Colon cancer Paternal Grandfather Breast cancer Paternal Grandmother Relation Name Status Comments Father Father's Brother Maternal Grandmother Mother Other Paternal Grandfather Paternal Grandmother Social History Tobacco Use Types Packs/Day Years [...] on file Legal Sex Female 4:00 AM FURNACE ROOM SUPERVISOR Gender Identity Not on file Sexual Orientation Not on file Obstetrics History Last Filed Vital Signs Vital Sign Reading [...] 02/07/2021 1:41 PM CDT Plan of Treatment Health Maintenance Due Date Last Done Comments Cervical Cancer Screening 1978 Colon Cancer Screening-Colonoscopy 1978 Hepatitis C Screening 1978 Hepatitis B Screening 1996 Depression Screening 02/07/2022 02/07/2021, 09/30/2019 Regular Well Visit/Exam 18-64 02/07/2022, 09/30/2019 Breast Cancer Screening-Mammogram 03/12/2022 03/12/2021, 01/28/2020, 01/16/2019 DTaP/Tdap/Td Vaccine (2 - Td or Tdap) 09/01/2022 09/01/2012 Covid-19 Vaccine (3 - 2023-2 5 season) 2024 01/02/2021, 11/27/2020 Influenza Vaccine (#1) 2024 07/29/2018 HPV Vaccines Aged Out No longer eligi ble based on patient's age to complete this topic Pneumococcal vaccine <65 Aged Out No longer eligible based on patient's age to complete this topic Procedures Procedure Name Priority Date/Time Associated Diagnosis Comments SCREENING MAMMOGRAM BILATERAL W NELSON Schedule Routine, Read Routine (OP Routine) 03/12/2021 Breast cancer screening by mammogram from Last 3 Months or Most Recently Relevant to Health Maintenance Results * Screening Mammogram Bilateral W Nelson (03/12/2021) Anatomical Region Laterality Modality Breast Bilateral Mammography Impressions 03/12/2021 BI-RADS Category 1: Negative Recommend routine screening in 1 year. Result [facility] Emili GALLARDO IMG MAMMO PROCEDURES Final Result from Last 3 Months or Most Recently Relevant to Health Maintenance Insurance [employer] [facility] PPO Care Teams Splunk Dashboard Developer Relationship Specialty Start Date End Date Emili Phelps PA [address] [address] PCP - General Internal Medicine 08/09/19
--- OUTSIDE RECORDS SUMMARY | 2024-10-07 08:45 | XMS_ITS | Data Portability ---
Author Organization [facility] [place] Address [address] [place] [address] Care Team Providers Care Utility Worker Film Processing Name Role Phone AUGUST FROST Primary Care Provider Assessment Encounter Date Assessment Date Assessment LastModified by Organization Details LastModified Time 07/21/2023 07/21/2023 Annual gynecological exam performed. Patient will come back in a year unless there are new symptoms. [email or web address] Not available 07/21/2023 12:22:05 Plan of Treatment Reminders Order Date Submit Date Provider Last Modified By Organization Details Last Modified Time Details Appointments None recorded. Lab None recorded. Referral pelvic floor therapy referral [address] [facility], [address] [facility], [facility] [address], [place], [address], 4 14:12:41 Procedures None recorded. Surgeries None recorded. Imaging MAMMO, screening, digital, bilateral 2022 023 JÚNIOR Not available 4 05:01:05 Medication Orders None recorded. Patient TargetsNo targets recorded. Patient InstructionsNo instructions recorded. Reason for Referral Pelvic Floor Therapy Referra l for Mixed urinary incontinence Referring Physician: An Champagne, DESK PEN SET ASSEMBLER, Encounter Date: 07/21/2023 Results Created Date Observation Date Name Description Value Unit Range Abnormal Flag Note LastModifiedBy Organization Detail LastModifiedTime 07/21/20 23 07/21/2023 IMAGE GUIDE D PAP AND HPV REGAR DLESS image guided Pap, HPV regardless of Pap result SEE RESULT S BELOW CASE REPOR T: Cytol ogy Gynec ologi zachariah Repor t Case: [id number] Autho bernadine irving Provi ophelia: An Champagne, DIPAK Cortes cted: 07/21 1617 Order ing Locat ion: [place] Patho loglucita Recei jeremie: 07/22 0617 First Scree n: Sera burleson, Hilaria barragan, CT Speci men: Scree aayush Pap - Image d, Cervi x STATE MENT OF ADEQU ACY: Satis facto ry for evalu ation Trans forma tion zone compo nent prese nt FINAL DIAGN OSIS: Negat kane for Intra epith elial Lesio n or Loreta rios (NIL) . Elect radha burton liam d by Sera burleson, Hilaria barragan, CT on 07/23 at 7:44 PM ----- ----- ----- ----- ----- ----- ----- ----- ----- ----- ----- ----- ----- ----- ----- ----- ----- ---- HPV RESUL TS: HPV mRNA E6/E7 : No HPV mRNA Detec alvaro NOTE: This high risk HPV mRNA assay detec ts fourt een high- risk HPV types (16, 18, 31, 33, 35, 39, 45, 51, 52, 56, 58, 59, 66, 68) witho ut diffe renti ation . COMME NT: This speci men was revie wed by a Cytot echno logis t and/o r Patho logis t (as indic ated in this repor t) after evalu ation using the Thinp rep Imagi ng Syste m. CLINI ZACHARIAH INFOR MATIO N: Menst rual Statu s: LMP (if appli cable ): Clini zachariah Histo ry/Pr eviou s Pap: Type of Neopl ines (if appli cable ): Signi fican t Clini zachariah Findi ngs: Other Histo ry: Hormo yunier (if appli cable ): PAP EDUCA CEDRICK L NOTE: The Pap Test is a scree aayush test with an inher ent false negat kane rate. Liqui d-bas ed sampl ing may decre ase, but will not elimi sheryl, false negat kane resul ts. A negat kane resul t does not precl ude the prese nce and/o r devel opmen t of disea se, since the prese nce of abnor mal cells in the sampl e depen ds on the locat ion of the lesio n and sampl ing techn ique. Autumn nued regul ar scree aayush is the best metho d of cance r preve ntion . If repor alvaro cytol ogic findi ng do not corre late with physi zachariah and/o r histo rical findi ngs, furth er inves tigat ion is recom lissette d, as clini myrna morgan nted. Not Available [facility] (Lab) [address] [facility], [place], [address], 07/23/2023 20:46:41 Result Notes None recorded. Procedures Surgical History Date Name Laterality Status Provider Name and Address Organization Details Recorded Time 3 Date of Last Pap Smear completed [facility] 07/21/2023 13:20:45 2 Date of Last Mammogram completed [facility] 07/21/2023 12:24:04 0 hernia repair completed [facility] 07/22/2023 14:55:11 4 Carpal tunnel surgery completed [facility] 07/22/2023 14:55:49 1 Carpal tunnel surgery completed [facility] 07/22/2023 14:55:44 9 hernia repair completed [facility] 07/22/2023 14:55:08 6 Dilation and Curettage completed [facility] 07/22/2023 14:54:26 8 extraction of wisdom tooth completed Danii May [facility] 07/22/2023 14:55:29 Imaging Results None recorded. Procedure Notes None recorded. Medical Equipment None Reported. Allergies Allergen ID Allergen Name Allergen Category Reaction Reaction Severity Criticality Documentation Date Start Date Code Code System Note Provider Name and Address Organization Details Recorded Time 42841 Penicilli n Not available rash moderate Not available 07/21/2023 49029 RxNorm Danii cano [facility] 12:24:04 Medications Name Sig Start Date Stop Date Status Note LastModified by Organization Details LastModified Time venlafaxine ER 37.5 mg capsule,ext ended release 24 hr TAKE 1 CAPSULE BY MOUTH DAILY active Not Available Not Available No t Available venlafaxine 37.5 mg tablet 07/21 completed Not Available Not Available Not Available bupropion HCl XL 300 mg 24 hr tablet, extended release TAKE 1 TABLET BY MOUTH EVERY MORNING active Not Available Not Available No t Available bupropion HCl XL 150 mg 24 hr tablet, extended release TAKE 1 TABLET BY MOUTH EVERY MORNING 07/21 completed Not Available Not Available Not Available All Day Allergy (cetirizine ) 10 mg capsule active Not Available Not Available Not Available BinaxNOW COVID-19 Ag Self Test kit TEST DIRECTED TODAY 07/21 completed Not Available Not Available Not Available Vitals Date Recorded Body height Body mass index (BMI) Body weight Systolic blood pressure Diastolic blood pressure Provider Name and Address Organization Details Last Updated DateTime 07/21/2023 161.93 cm 27.3 kg/m2 55236.59 g 124 mm[Hg] 75 mm[Hg] Danii May [facility] 12:23:42 Social History Question Answer Notes LastModified by Organizat ion Details LastModified Time Tobacco Smoking Status Never Smoker Danii cano [facility] 07/22/2023 14:56:19 What Is Your Level Of Alcohol Consumption? Moderate [email or web address] Information not available 07/21/2023 How Many Years Have You Consumed Alcohol? 20 [email or web address] Information not available 07/21/2023 Are You Blind Or Do You Have Difficulty Seeing? No [email or web address] Information n ot available 07/21/2023 What Is Your Level Of Caffeine Consumption? Moderate [email or web address] Information not available 07/21/2023 How Much Tobacco Do You Chew? None [email or web address] Information not available 07/21/2023 In The 14 Days Before Symptom Onset, Have You Had Close Contact With A Laboratory-confirm ed COVID-19 While That Case Was Ill? No Information n ot available 07/21/2023 In The 14 Days Before Symptom Onset, Have You Had Close Contact With A Person Who Is Under Investigation For COVID-19 While That Person Was Ill? No Information not available 07/21/2023 Have You Been To An Area Known To Be High Risk For COVID-19? No [email or web address] Information not available 07/21/2023 Are You Deaf Or Do You Have Serious Difficulty Hearing? No [email or web address] Information not available 07/21/2023 What Type Of Diet Are You Following? REGULAR [email or web address] Information n ot available 07/21/2023 What Is The Highest Grade Or Level Of School You Have Completed Or The Highest Degree You Have Received? 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 No [email or web address] Information not available 07/21/2023 Do You Use Protection During Sex? No [email or web address] Information not available 07/21/2023 Do You Use Your Seat Belt Or Car Seat Routinely? Yes [email or web address] Information not available 07/21/2023 Do You Have Smoke And Carbon Monoxide Detectors In Your Home? Yes vvrpxxye56 Information not available 07/21/2023 How Much Tobacco Do You Smoke? No bdsgcgru95 Information not available 07/21/2023 Do You Feel Stressed (tense, Restless, Nervous, Or Anxious, Or Unable To Sleep At Night)? [id number] cgidaabs67 Information not available 07/21/2023 Do You Use Any Illicit Or Recreational Drugs? No Information not available 07/21/2023 Do You Use Sunscreen Routinely? Yes [email or web address] Information not available 07/21/2023 Has Tobacco Cessation Counseling Been Provided? No [email or web address] Information not available 07/22/2023 Have You Used IV Drugs? No Information not available 07/21/2023 Do You Or Have You Ever Used Any Other Forms Of Tobacco Or Nicotine? No [email or web address] Information not available 07/22/2023 Sex: Unknown Functional Status Question Answer Note LastModified by Organizat ion Details LastModified Time Do you have difficulty walking or climbing stairs? No [email or web address] Information not available 07/22/2023 Are you able to walk? YESWOREST opshvsaf46 Information not available 07/21/2023 Are you able to care for yourself? Yes [email or web address] Information not available 07/22/2023 Do you have difficulty dressing or bathing? No Information not available 07/22/2023 What is your exercise level? Moderate ictwutym16 Information not available 07/21/2023 Mental Status None recorded. Family History Relationship Description Onset Age of this Age Resolved Age Notes LastModified by Organization Details LastModified Time Paternal Uncle Malignant tumor of colon [email or web address] Not available 07/21 12:24:04 Maternal Uncle Diabetes mellitus [email or web address] Not available 07/21 12:24:04 Paternal Grandmother Malignant tumor of breast Not available 07/21 12:24:04 Paternal Grandmother Kidney disease [email or web address] Not available 07/21 12:24:04 Paternal Grandmother Polyp of colon gfmqetkb10 Not available 07/22 14:59:20 Mother Malignant tumor of breast Not available 07/21 12:24:04 Mother Pre-eclampsi a vhbfyvho45 Not available 07/21 12:24:04 Mother Heart disease [email or web address] Not available 07/21 12:24:04 Mother Diabetes mellitus [email or web address] Not available 07/21 12:24:04 Mother Parkinson's disease [email or web address] Not available 07/22 15:00:04 Mother Hypertensive disorder [email or web address] Not available 07/22 15:05:20 Maternal Aunt Diabetes mellitus [email or web address] Not available 07/21 12:24:04 Maternal Grandmother Malignant tumor of breast Not available 07/21 12:24:04 Maternal Grandmother Heart disease rrsbdiez83 Not available 07/21 12:24:04 Maternal Grandmother Diabetes mellitus [email or web address] Not available 07/21 12:24:04 Maternal Grandmother Hypertensive disorder [email or web address] Not available 07/22 15:05:20 Maternal Grandfather Heart disease umrusbft00 Not available 07/21 12:24:04 Paternal Grandfather Malignant tumor of colon pyqujuis82 Not available 07/21 12:24:04 Paternal Grandfather Polyp of colon [email or web address] Not available 07/22 14:59:20 Father Polyp of colon [email or web address] Not available 07/22 14:59:20 Father Malignant neoplasm of skin [email or web address] Not available 07/22 15:00:32 Sister Hypertensive disorder [email or web address] Not available 07/22 15:05:20 Medical History Condition Response Allergies (Food, seasonal, environmental ) Y Other N Breast Cancer N Drug/Latex Allergies/Reactions Y Blood Transfusion N Dermatologic Disorders N Lung Disease N Defects or Inherited Disease N Breast Problem N Gestational Diabetes N Hematologic disorders N Anesthesia Complications N History of STI N Deep Vein Thrombosis N Polycystic ovary syndrome N Anxiety Disorder Y Autoimmune disease N Arthritis N Infertility N Polyps N Acid Reflux (GERD) N History of abnormal pap N Cancer N Stroke N Varicosities N Neurologic/Epilepsy N Endometriosis N High Cholesterol N Headaches N Fibromyalgia N Kidney Disease N Heart Problems N Kidney or Bladder Problems N Thyroid Problems N GI Problems Y Eating Disorder N Anemia N Art (IVF or FET) N Psychiatric Illness N Ovarian Cancer N Diabetes N Pulmonary (TB, Asthma) N Hepatitis/Liver Disease N No Past Medical History N Eczema N Urinary Tract Infection N Abuse/Domestic Violence N Asthma N Trauma/Violence N Depression/ depression Y Heart Disease N Pre-Eclampsia N Hypertension N Osteoporosis N Thrombophilias N Gynecological History Statement/Question Response Date of Last Mammogram 2022 Date of LMP 06/23/2023 Was last menstrual period normal N STIs/STDs N Duration of Flow (days) 4 Current Control Method Partner Vas ectomy Age at First Child 27 Frequency of Cycle (Q days) 26 Sexually Active? Y Date of DEXA bone scan Age of first menstrual cycle 10 Date of Last Pap Smear 07/21/2023 Sexual Problems? N LMP Definite Obstetrics History GPAL:G 5 P 4 0 1 4 Type Value Full Term 4 Spontaneous 1 Living 4 Total 5 Past Encounters Encounter ID Performer Location Encounter Start Date Encounter Closed Date Diagnosis/Indication Diagnosis SNOMED-CT Code Diagnosis ICD10 Code Diagnosis Note [id number] BILL [facility] [place] [address] [address] 07/21/2023 11:54:49 07/21/2023 14:24:53 Gynecologic examination 01950449 Z01.419 WWEBC - partner with vasectomyp ap updatedSTI testing declinedma mmogram order givencolon CA screening discussed and encouraged encouraged annual exam with [facility] in 1 yr or sooner if needed Suggested Calcium with Vitamin D daily. Patient advised to get an annual flu shot in the fall and she could obtain at [facility] or [facility] clinic. Also to obtain TDap vaccinatio n if you have not had one in the last 10 years. Recommend yearly mammograms . Encouraged monthly self breast exams. Encourage safe sexual practices, to use condoms and limit partners if not already in a monogamous relationsh ip. Engage in daily exercise of low impact aerobic exercise 45-60 minutes 4-5 times weekly. Avoid tobacco and illicit drugs. This lifestyle behavior pattern will lead to less health conditions and longer life span. If BMI greater than 25 dietary consult advised. All questions have been answered. Patient appears to understand informatio n, but if you have any questions please call or respond to this email. Screening for malignant neoplasm of breast [id number] Z12.39 Mixed urin warren incontinence [id number] N39.46 Discussed management optionsrec ommend PFPT - referral placed Time spent in visit is a total of 35 mins with at least 50% of visit consisting of counseling and review of plan of care. Health Concerns Section Related Observation LastModified by Organization Detai ls LastModified Time None Recorded Concern Status LastModified by Organization Details LastModified Time None Recorded Advance Directives Directive None Recorded Payers Encounter Date Sequence Insurance Name Policy Number Policy Zavaleta Covered Member ID Zavaleta Member ID Guarantor Name 07/21/2023 1 [employer] (POS) [id number] Devin Villegas [id number] Pao Villegas Notes Date Note Type Note Provider Name and Address Organization Details Recorded Time 07/21/2023 text/html Annual GYNReport ed bypatient.Menstrual cycle:Normal menses Urinary symptoms:No hematuria;Stress incontinence; small amount of leaking with running/sneezing/ju mping Vulva:No genital lesion Vagina:Normal vaginal discharge Breast:No breast pain; No breast lump; No nipple discharge Current Contraception:Satis fied with current contraception; Partner had vasectomy Sexual complaints:No sexual complaints; No pain during intercourse; Normal libido Menopausal Symptoms:No menopausal symptoms; Normal vaginal lubrication Psychological symptoms:No depression; No anxiety; No PMDD Preventive measures:Encourage self breast examination; Encourage regular exercise; Encourage no tobacco use; Encourage regular mammograms starting age 40Notes:no hx of abnormal papsmammogram 05/2022no colon CA screening yet BILL [facility] [address], [place], [address], [facility] 07/21/2023 14:16:53 OBGyn Episode Ob Episode Information Episode Created Date Number of Fetuses Patient Bloodtype Patient rh Status Prepregnancy Weight lbs Domestic Partner Domestic Partner Phone Father Name Laboratory Associate Status 07/22/20 23 1 CLOSED Fetus Data First Name Last Name Admitted to NICU Weight (g) Sex Living Outcome Pediatric Complications Fetus ID Race Codes Race Delivery Type 3628.73 6 M Full Term [id number] Vaginal Delivery Hans Calculation Initial Hans Date Initial Exam Date Initial Exam Provider Initial Ultrasound Date Last Menstrual Period Date Ultra Sound Weeks Gestation 0 Eighteen To Twenty Week Hans Update Ultra Sound Date Fundal Height At Umbil Quickening Date Ultra Sound Latest Weeks Gestation Final Hans Confirmed By Final Hans Confirmed Date Final Hans Date Ultra Sound Latest Days Gestation 0 0 Menstrual History Last Menstrual Date Menses Monthly On Bcp Conception Prior Menses Frequency Hcg Plus Date Menarche Onset Age Delivery Information Delivery Date Delivery Type Labor Anesthesia Weeks Gestation Incision Type Labor Labor Length Hrs Delivered By Post Complications Tubal Sterilization Discharge Date Comments 0 39 Discharge Information Feeding Method Contraceptive Method Maternal HG B and HCT Levels Ob Episode Information Episode Created Date Number of Fetuses Patient Bloodtype Patient rh Status Prepregnancy Weight lbs Domestic Partner Domestic Partner Phone Father Name Laboratory Associate Status 07/22/20 1 CLOSED Fetus Data First Name Last Name Admitted to NICU Weight (g) Sex Living Outcome Pediatric Complications Fetus ID Race Codes Race Delivery Type , Spontane ous [id number] Hans Calculation Initial Hans Date Initial Exam Date Initial Exam Provider Initial Ultrasound Date Last Menstrual Period Date Ultra Sound Weeks Gestation 0 Eighteen To Twenty Week Hans Update Ultra Sound Date Fundal Height At Umbil Quickening Date Ultra Sound Latest Weeks Gestation Final Hans Confirmed By Final Hans Confirmed Date Final Hans Date Ultra Sound Latest Days Gestation 0 0 Menstrual History Last Menstrual Date Menses Monthly On Bcp Conception Prior Menses Frequency Hcg Plus Date Menarche Onset Age Delivery Information Delivery Date Delivery Type Labor Anesthesia Weeks Gestation Incision Type Labor Labor Length Hrs Delivered By Post Complications Tubal Sterilization Discharge Date Comments 6 Discharge Information Feeding Method Contraceptive Method Maternal HG B and HCT Levels Ob Episode Information Episode Created Date Number of Fetuses Patient Bloodtype Patient rh Status Prepregnancy Weight lbs Domestic Partner Domestic Partner Phone Father Name Laboratory Associate Status 07/22/20 1 CLOSED Fetus Data First Name Last Name Admitted to NICU Weight (g) Sex Living Outcome Pediatric Complications Fetus ID Race Codes Race Delivery Type 3345.24 1 M Full Term [id number] Vaginal Delivery Hans Calculation Initial Hans Date Initial Exam Date Initial Exam Provider Initial Ultrasound Date Last Menstrual Period Date Ultra Sound Weeks Gestation 0 Eighteen To Twenty Week Hans Update Ultra Sound Date Fundal Height At Umbil Quickening Date Ultra Sound Latest Weeks Gestation Final Hans Confirmed By Final Hans Confirmed Date Final Hans Date Ultra Sound Latest Days Gestation 0 0 Menstrual History Last Menstrual Date Menses Monthly On Bcp Conception Prior Menses Frequency Hcg Plus Date Menarche Onset Age Delivery Information Delivery Date Delivery Type Labor Anesthesia Weeks Gestation Incision Type Labor Labor Length Hrs Delivered By Post Complications Tubal Sterilization Discharge Date Comments 9 39 Discharge Information Feeding Method Contraceptive Method Maternal HG B and HCT Levels Ob Episode Information Episode Created Date Number of Fetuses Patient Bloodtype Patient rh Status Prepregnancy Weight lbs Domestic Partner Domestic Partner Phone Father Name Laboratory Associate Status 07/22/20 23 1 CLOSED Fetus Data First Name Last Name Admitted to NICU Weight (g) Sex Living Outcome Pediatric Complications Fetus ID Race Codes Race Delivery Type 3486.76 1704 M Full Term [id number] Vaginal Delivery Hans Calculation Initial Hans Date Initial Exam Date Initial Exam Provider Initial Ultrasound Date Last Menstrual Period Date Ultra Sound Weeks Gestation 0 Eighteen To Twenty Week Hans Update Ultra Sound Date Fundal Height At Umbil Quickening Date Ultra Sound Latest Weeks Gestation Final Hans Confirmed By Final Hans Confirmed Date Final Hans Date Ultra Sound Latest Days Gestation 0 0 Menstrual History Last Menstrual Date Menses Monthly On Bcp Conception Prior Menses Frequency Hcg Plus Date Menarche Onset Age Delivery Information Delivery Date Delivery Type Labor Anesthesia Weeks Gestation Incision Type Labor Labor Length Hrs Delivered By Post Complications Tubal Sterilization Discharge Date Comments 7 39 Discharge Information Feeding Method Contraceptive Method Maternal HG B and HCT Levels Ob Episode Information Episode Created Date Number of Fetuses Patient Bloodtype Patient rh Status Prepregnancy Weight lbs Domestic Partner Domestic Partner Phone Father Name Laboratory Associate Status 07/22/20 23 1 CLOSED Fetus Data First Name Last Name Admitted to NICU Weight (g) Sex Living Outcome Pediatric Complications Fetus ID Race Codes Race Delivery Type 3259.96 5704 F Full Term [id number] Vaginal Delivery Hans Calculation Initial Hans Date Initial Exam Date Initial Exam Provider Initial Ultrasound Date Last Menstrual Period Date Ultra Sound Weeks Gestation 0 Eighteen To Twenty Week Hans Update Ultra Sound Date Fundal Height At Umbil Quickening Date Ultra Sound Latest Weeks Gestation Final Hans Confirmed By Final Hans Confirmed Date Final Hans Date Ultra Sound Latest Days Gestation 0 0 Menstrual History Last Menstrual Date Menses Monthly On Bcp Conception Prior Menses Frequency Hcg Plus Date Menarche Onset Age Delivery Information Delivery Date Delivery Type Labor Anesthesia Weeks Gestation Incision Type Labor Labor Length Hrs Delivered By Post Complications Tubal Sterilization Discharge Date Comments 3 39 Discharge Information Feeding Method Contraceptive Method Maternal HG B and HCT Levels
--- OUTSIDE RECORDS SUMMARY | 2024-10-07 08:45 | XMS_ITS | Patient Health Summary ---
Author Organization [facility] Address [address] [place] [address] Care Team Providers Care Supervisor Type Bar And Segment Name Role Phone Latonia Gomez MD Primary Care Provider [phone] Note from [facility],non-owned Affiliates and Associated Physician Practices is amultiple site organization consisting of ambulatory clinics and hospital sitesin [place], [place], [place]. This disclosure is being madepursuant to the Care Everywhere program and may not contain all information available regarding this patient. Last updated 18.[facility] Immunizations * INFLUENZA VACCINE, QUADR. (FLUZONE; FLULAVAL; FLUARIX; AFLURIA QUADRIVALENT; 6MO+), 0.5 ML (IIV4)(Given 07/29/2018) Social History Tobacco Use Types Packs/Day Years Used Date Smoking Tobacco: Never Assessed Sex and Gender Information Value Date Recorded Sex Assigned at Not on file Gender Identity Not on file Sexual Orientation Not on file Care Teams Supervisor Type Bar And Segment Relationship Specialty Start Date End Date Latonia Gomez MD [address] [place] [id number] PCP - General 10/19/08
--- OUTSIDE RECORDS SUMMARY | 2024-10-07 08:45 | XMS_ITS | Referral Summary ---
Author Organization [facility] Address [address] [address] Care Team Providers Care Composition Mixer Name Role Phone Latonia Gomez MD Primary Care Provider [phone] Source Comments [facility],non-owned Affiliates and Associated Physician Practices is amultiple site organization consisting of ambulatory clinics and hospital sitesin [place] and [place]. This disclosure is being madepursuant to the Care Everywhere program and may not contain all information available regarding this patient. Last updated 18.[facility] Immunizations Name Administration Dates Next Due INFLUENZA VACCINE, QUADR. (F LUZONE; FLULAVAL; FLUARIX; AFLURIA QUADRIVALENT; 6MO+), 0.5 ML (IIV4) 07/29/2018 Social History Tobacco Use Types Packs/Day Years Used Date Smoking Tobacco: Never Assessed Sex and Gender Information Value Date Recorded Sex Assigned at Not on file Gender Identity Not on file Sexual Orientation Not on file Plan of Treatment Not on file Care Teams Composition Mixer Relationship Specialty Start Date End Date Latonia Gomez MD [address] [place] [address] PCP - General 10/19/08
--- OUTSIDE RECORDS SUMMARY | 2024-10-07 08:45 | XMS_ITS | Clinical Summary ---
Author Organization [facility] Address [address] [place] [address] Care Team Providers Care Good Humor Vendor Name Role Phone Latonia Gomez MD Primary Care Provider [phone] Source Comments [facility],non-owned Affiliates and Associated Physician Practices is amultiple site organization consisting of ambulatory clinics and hospital sitesin [place], [place], [place] and [place]. This disclosure is being madepursuant to the Care Everywhere program and may not contain all information available regarding this patient. Last updated 18.[facility] Immunizations Name Administration Dates Next Due INFLUENZA [...] Health Maintenance Due Date Last Done Comments COLOGUARD (AGES 45-75) - COL ON CA SCREENING 1978 COLON MONITORING 1978 COLONOSCOPY - COLON CA SCREENING 1978 CT COLONOGRAPHY - COLON CA SCREENING 1978 Colorectal Cancer Screening 1978 FIT - COLON CA SCREENING 1978 FLEX SIG - COLON CA SCREENING 1978 LIPID TESTING 1978 MAMMOGRAM 1978 PAP SMEAR 1978 HIV SCREENING 1993 HEPATITIS C SCREENING 05/07/1996 DTAP/TDAP/TD VACCINES (1 - Tdap) 1997 HEPATITIS B VACCINE (1 of 3 - 19+ 3-dose series) 1997 COVID-19 VACCINE (1 - 2023-2 5 season) 2024 INFLUENZA VACCINE (#1) 2024 07/29/2018 DEPRESSION SCREENING 09/01/2024 ZOSTER VACCINE (1 of 2) 2028 HIB VACCINE Aged Out No longer eligi ble based on patient's age to complete this topic HPV VACCINE Aged Out No longer eligi ble based on patient's age to complete this topic MENINGOCOCCAL (Group B) VACCINE Aged Out No longer eligible based on patient's age to complete this topic MENINGOCOCCAL VACCINE Aged Out No darshan aníbal eligible based on patient's age to complete this topic PNEUMOCOCCAL VACCINE Aged Out No long er eligible based on patient's age to complete this topic Care Teams Good Humor Vendor Relationship Specialty Start Date End Date Latonia Gomez MD [address] [place] [address] PCP - General 10/19/08
== END 2024-10-07 08:37 | disposition home or self-care (01) ==
PROVIDERS: PCP Nurse Practitioner Family; Visit Provider Nurse Practitioner Family
DX: Z12.31 Encounter for screening mammogram for malignant neoplasm of breast (principal)
CPT/HCPCS: 77063; 77067